=== PATIENT | female | born 1960 ===

== ENCOUNTER 2016-11-01 10:01 | Emergency (ER) | payer MEDICAID ==
[2016-11-01 14:47] VITALS: BP 128/62
== END 2016-11-01 14:47 | disposition home or self-care (01) ==
LOC: ED 10:01
DX: M65.241 Calcific tendinitis, right hand (principal); F41.9 Anxiety disorder, unspecified; G89.29 Other chronic pain; I10 Essential (primary) hypertension; Z79.899 Other long term (current) drug therapy; Z79.891 Long term (current) use of opiate analgesic
CPT/HCPCS: J1885; Q0092